=== PATIENT | female | born 1985 | race Two or more races ===

== ENCOUNTER 2023-04-25 12:17 | Emergency (ER) | payer MEDICAID, OTHER ==
[~2023-04-25] VITALS: Ht 147.3 cm; Wt 84.2 kg
[2023-04-25 13:58] VITALS: BP 171/71; PULSE 94; RESP 18; TEMP 97.2; O2SAT 95
[2023-04-25] MEDS ORDERED: KETOROLAC TROMETH 60MG/2ML VIAL IM ONE (14:00)
[2023-04-25] MEDS ORDERED: IBUP-1455 PO (16:57)
[2023-04-25] MEDS ORDERED: ACE3T PO (16:57)
[2023-04-25 17:12] LABS: Urine Bacteria FEW /hpf (None Seen); Urine Blood Negative /uL (Negative); Urine Clarity Clear (Clear); Urine Color Yellow (Yellow); Urine Mucus FEW (None Seen); Urine Protein, UAD 2+ (Negative); Urine Urobilinogen Normal (Negative); Urine WBC 2 /hpf (0 - 5)
== END 2023-04-25 17:20 | disposition home or self-care (01) ==
LOC: ER 12:17
DX: S16.1XXA Strain of muscle, fascia and tendon at neck level, initial encounter (principal); S20.211A Contusion of right front wall of thorax, initial encounter; S30.1XXA Contusion of abdominal wall, initial encounter; V89.2XXA Person injured in unspecified motor-vehicle accident, traffic, initial encounter; Y93.I9 Activity, other involving external motion; Y92.89 Other specified places as the place of occurrence of the external cause; Y99.8 Other external cause status
CPT/HCPCS: 71046; 72040; 74176; 81001; 96372; 99285; J1885